=== PATIENT | male | born 1945 | race Caucasian/White ===

== ENCOUNTER 2018-06-22 09:21 | Emergency (ER) | payer MEDICARE, OTHER | END 2018-06-22 11:15 | disposition home or self-care (01) | LOC: FTE 09:21 | DX: R51 Headache (principal); I10 Essential (primary) hypertension; I25.2 Old myocardial infarction; E11.9 Type 2 diabetes mellitus without complications; I25.10 Atherosclerotic heart disease of native coronary artery without angina pectoris; Z79.82 Long term (current) use of aspirin; Z86.73 Personal history of transient ischemic attack (TIA), and cerebral infarction without residual deficits | CPT/HCPCS: 72040; 82962; 99283-25 ==